=== PATIENT | female | born 1995 | race Caucasian/White ===

== ENCOUNTER 2016-09-09 06:02 | Emergency (ER) | payer OTHER ==
[~2016-09-09] VITALS: Ht 170.2 cm; Wt 76.2 kg
--- NOTE | 2016-09-09 06:10 | ED INFLUENZA/URI COMPLAINT ---
History of Present Illness General Chief Complaint: Ear Complaints Stated Complaint: RT EAR PAIN,SORE THROAT Source: patient, family Exam Limitations: no limitations Vital Signs & Intake/Output Vital Signs & Intake/Output . Allergies Uncoded Allergies: Allergy Other N Med Allergies N Reconcile Medications Amoxicillin/Potassium Clav (Augmentin 875-125 Tablet) 875 MG-125 MG TABLET 1 TAB PO BID EAR INFECTION Ibuprofen 800 MG TABLET 1 TAB PO TID PRN PAIN Triage Nurses Notes Reviewed? yes Onset: Gradual Duration: hour(s): Timing: recent history Severity: moderate Prior Episodes/Possible Cause: no prior episodes Modifying Factors: Worsens With: other (lying down worsens pain). Associated Symptoms: nasal congestion, nasal drainage HPI: 21 yo woman, recently diagnosed with lyme disease, on OCP's, presents with several hours of right ear pain. She notes nasal congestion, sore throat, mild cough. She is otherwise well. Past History Travel History Traveled to [place] past 21 day No Medical History Any Pertinent Medical History? see below for history Other Medical Hx: lyme disease Tetanus Vaccine: Surgical History Surgical History: none Psychosocial History What is your primary language [place] Family History Hx Contributory? No Review of Systems Review of Systems Constitutional: Reports: no symptoms. EENTM: Reports: no symptoms. Respiratory: Reports: no symptoms. Cardiovascular: Reports: no symptoms. GI: Reports: no symptoms. Genitourinary: Reports: no symptoms. Musculoskeletal: Reports: no symptoms. Skin: Reports: no symptoms. Neurological/Psychological: Reports: no symptoms. Hematologic/Endocrine: Reports: no symptoms. Immunologic/Allergic: Reports: no symptoms. All Other Systems: Reviewed and Negative Physical Exam Physical Exam General Appearance: well developed/nourished, mild distress Head: atraumatic, normal appearance Eyes: Bilateral: normal appearance. Ears, Nose, Throat: moist mucous membrane, right TM with erythema. Neck: normal inspection, supple Respiratory: normal breath sounds, chest non-tender, no respiratory distress, quiet respiration, lungs clear Cardiovascular: regular rate/rhythm Gastrointestinal: normal bowel sounds, soft, non-tender, no organomegaly Back: normal inspection, normal range of motion Extremities: normal inspection, normal capillary refill, normal range of motion, no edema Neurologic/Psych: no motor/sensory deficits, awake, alert, oriented x 3 Skin: intact, normal color, warm/dry Core Measures Severe Sepsis Present: No Septic Shock Present: No Progress Differential Diagnosis: otitis, pharyngitis, sinusitis Plan of Care: Current Medications Sig/Darek Start time Last Medication Dose Stop Time Status Admin Lidocaine 15 ML ONCE ONE 09/09 629 UNVr (Xylocaine Viscous) 09/09 630 Acetaminophen 975 MG ONCE ONE 09/09 614 UNVr (Tylenol) 09/10 615 Ibuprofen 800 MG ONCE ONE 09/09 614 UNVr (Motrin) 09/10 615 Initial ED EKG: none Departure Departure Disposition: HOME OR SELF CARE Condition: Stable Clinical Impression Primary Impression: Right otitis media Referrals: PATIENT HAS NO PRIMARY CARE DR (PCP/Family) Departure Forms: Customer Survey General Discharge Information Prescriptions: Current Visit Scripts Amoxicillin/Potassium Clav (Augmentin 875-125 Tablet) 1 TAB PO BID #20 TAB Ibuprofen 1 TAB PO TID PRN PAIN #30 TAB
[2016-09-09] MEDS ORDERED: IBUPROFEN800 M1 PO (06:16)
[2016-09-09] MEDS ORDERED: AUGMENTIN 875-1 EACH PO (06:16)
[2016-09-09 06:41] VITALS: BP 122/60
== END 2016-09-09 06:50 ==
LOC: ERH 06:02
DX: H66.91 Otitis media, unspecified, right ear (principal)